=== PATIENT | female | born 1965 | race Asian ===

== ENCOUNTER → 2023-10-01 10:24 | Outpatient (CLI) | payer OTHER, SELFPAY ==
--- NOTE | 2023-10-01 | DI.NM.S_ITS ---
PROCEDURE: NM EMILY PERF SPECT REST & STR Rest and exercise myocardial perfusion SPECT with gated imaging and ejection fraction RADIOPHARMACEUTICAL: 12.4 mCi Tc-99m sestamibi IV at rest and 26 mCi Tc-99m sestamibi IV at peak exercise. A one day-protocol was performed. INDICATIONS: Chest pain, unspecified TECHNIQUE: Radiopharmaceutical was injected at peak stress test, and also at rest. SPECT images were obtained. SPECT myocardial perfusion images were displayed in short axis, horizontal long axis, and vertical long axis views. Gated images were reviewed using [employer] software. COMPARISON: None. CARDIAC STRESS: A standard Tyshawn treadmill exercise tolerance test was performed by the patient under the supervision of an attending staff. The patient exercised for 10 minutes and 46 seconds; functional aerobic impairment (DAWN) is -55%. Hemodynamic data: There is normal blood pressure and heart rate response to exercise stress. Patient achieved 101% of maximum predicted heart rate at peak exercise. Symptoms: Patient denied chest pain during exercise. EKG: No diagnostic EKG changes of ischemia; no ectopy. FINDINGS: Raw data: There is good myocardial labeling by radiotracer. No significant motion artifacts. Xizl-oh-emlhe ratio is 0.33 (normal is less than 0.38 for sestamibi tracer, and less than 0.50 for thallium tracer). Left ventricle function: Gated images demonstrate normal left ventricle wall thickening. No segmental wall motion abnormality. No transient ischemic dilation; TID is 0.82 (normal less than 1.3). The left ventricle resting end-diastolic volume is 90 mL. Left ventricle stress ejection fraction is 73%; normal values are above 45%. Myocardial perfusion: There is normal distribution of activity in the left and right ventricular myocardium. No fixed or reversible perfusion defects. IMPRESSION: Low risk, normal treadmill nuclear stress test 1) No perfusion evidence of ischemia or infarction. 2) Normal left ventricular size, wall motion, and systolic function (EF post stress 73%). 3) No ST changes during exercise or recovery. 4) No angina during the study. 5) Excellent exercise capacity (12.8METs, DAWN -55%). Target heart rate achieved. Appropriate BP response to exercise. 6) No prior nuclear stress test available for comparison. Dictated by: Jenn Silva MD on 10/02/2023 at 13:07 Approved by: Jenn Silva MD on 10/02/2023 at 13:09
== END ==
PROVIDERS: PCP Physician Assistant Medical; Referring Provider Physician Assistant Medical; Visit Provider Physician Assistant Medical
DX: R07.9 Chest pain, unspecified (principal)
CPT/HCPCS: 78452; 93017; A9502